=== PATIENT | male | born 1965 | race Caucasian/White ===

== ENCOUNTER 2020-05-04 16:01 | Emergency (ER) | payer MEDICAID, OTHER ==
--- NOTE | 2020-05-04 16:06 | ED GI ---
General Chief Complaint: Abdominal/GI Problems Source of Information: Patient Exam Limitations: No Limitations History of Present Illness Date Seen by Provider: May 04, 2020 Time Seen by Provider: 16:03 Initial Comments 54-year-old male brought in by EMS following a syncope event. Patient reports that he was sent on the stool having to strain significantly due to try to have a bowel movement. While he was straining he passed out. Patient reports that he's had a lot of pain in his rectum that he feels like his stool is stuck there causing the discomfort. That it has been at least 4 days and had a bowel moveme nt. He takes 6 different stool softeners. He tried enema with no relief. Allergies and Home Medications Allergies Coded Allergies: Penicillins (Verified Allergy, Unknown, 05/04/20) codeine (Verified Allergy, Unknown, 05/04/20) Patient Home Medication List Home Medication List Reviewed: Yes Review of Systems Review of Systems Constitutional: No chills, No fever EENTM: No Symptoms Reported Respiratory: No Symptoms Reported Cardiovascular: No Symptoms Reported Gastrointestinal: See HPI, Constipated Genitourinary: No Symptoms Reported Musculoskeletal: no symptoms reported Skin: no symptoms reported Psychiatric/Neurological: See HPI Past Nnrwyhx-Ipxokf-Dlsegw Hx Past Med/Social Hx: Reviewed Nursing Past Med/Soc Hx Physical Exam Vital Signs Vital Signs - First Documented 05/04/20 16:43 Temp 37.1 Pulse 85 Resp 16 B/P (MAP) 134/95 (108) Pulse Ox 95 Capillary Refill : Height/Weight/BMI Height: '" Weight: lbs. oz. kg; BMI Method: General Appearance: no apparent distress Respiratory: lungs clear, normal breath sounds Cardiovascular: no edema, tachycardia Gastrointestinal: non tender, soft Rectal: other (fecal impaction ) Neurologic/Psychiatric: alert, normal mood/affect, oriented x 3 Skin: normal color, warm/dry Progress/Results/Core Measures Results/Orders Lab Results Laboratory Tests Test 05/04/20 16:44 05/04/20 17:10 Range/Units Glucometer 125 H 70-110 MG/DL White Blood Count 14.9 H 4.3-11.0 10^3/uL Red Blood Count 4.92 4.35-5.85 10^6/uL Hemoglobin 14.7 13.3-17.7 G/DL Hematocrit 42 40-54 % Mean Corpuscular Volume 86 80-99 FL Mean Corpuscular Hemoglobin 30 25-34 PG Mean Corpuscular Hemoglobin Concent 35 32-36 G/DL Red Cell Distribution Width 12.6 10.0-14.5 % Platelet Count 433 H 130-400 10^3/uL Mean Platelet Volume 8.7 7.4-10.4 FL Neutrophils (%) (Auto) 80 H 42-75 % Lymphocytes (%) (Auto) 12 12-44 % Monocytes (%) (Auto) 6 0-12 % Eosinophils (%) (Auto) 1 0-10 % Basophils (%) (Auto) 1 0-10 % Neutrophils # (Auto) 12.0 H 1.8-7.8 X 10^3 Lymphocytes # (Auto) 1.8 1.0-4.0 X 10^3 Monocytes # (Auto) 0.9 0.0-1.0 X 10^3 Eosinophils # (Auto) 0.1 0.0-0.3 10^3/uL Basophils # (Auto) 0.1 0.0-0.1 10^3/uL Neutrophils % (Manual) 69 % Lymphocytes % (Manual) 11 % Monocytes % (Manual) 9 % Eosinophils % (Manual) 0 % Basophils % (Manual) 0 % Metamyelocytes % 1 % Band Neutrophils 8 % Atypical Lymphocytes 2 % Blood Morphology Comment NORMAL Sodium Level 138 135-145 MMOL/L Potassium Level 4.4 3.6-5.0 MMOL/L Chloride Level 100 98-107 MMOL/L Carbon Dioxide Level 26 21-32 MMOL/L Anion Gap 12 5-14 MMOL/L Blood Urea Nitrogen 14 7-18 MG/DL Creatinine 0.98 0.60-1.30 MG/DL Estimat Glomerular Filtration Rate > 60 BUN/Creatinine Ratio 14 Glucose Level 116 H 70-105 MG/DL Calcium Level 9.4 8.5-10.1 MG/DL Corrected Calcium 9.6 8.5-10.1 MG/DL Total Bilirubin 0.2 0.1-1.0 MG/DL Aspartate Amino Transf (AST/SGOT) 18 5-34 U/L Alanine Aminotransferase (ALT/SGPT) 16 0-55 U/L Alkaline Phosphatase 134 40-136 U/L Troponin I < 0.30 <0.30 NG/ML Total Protein 6.8 6.4-8.2 GM/DL Albumin 3.7 3.2-4.5 GM/DL My Orders Orders - LESA FRITZ DO Cbc With Automated Diff (05/04/20 16:06) Comprehensive Metabolic Panel (05/04/20 16:06) Accucheck Stat ONCE (05/04/20 16:06) Ekg Tracing (05/04/20 16:06) Monitor-Rhythm Ecg Trace Only (05/04/20 16:06) Troponin I Fs (05/04/20 16:06) Abdomen (Kub) 1 View (05/04/20 16:06) Ketorolac Injection (Toradol Injection) (05/04/20 16:10) Manual Differential (05/04/20 17:10) Medications Given in ED Current Medications Medications Dose Ordered Sig/Rai Route Start Time Stop Time Status Last Admin Dose Admin Ketorolac Tromethamine 30 mg STK-MED ONCE .ROUTE 05/04/20 16:10 05/04/20 16:14 DC 05/04/20 16:30 30 MG Vital Signs/I&O 05/04/20 16:43 Temp 37.1 Pulse 85 Resp 16 B/P (MAP) 134/95 (108) Pulse Ox 95 Progress Progress Note : Time: 16:37 Progress Note Patient had significant improvement in his symptoms following disimpaction by nurse. Patient with likely vasovagal syncope. 1744 patient continues to feel fine. No further episodes of syncope. He does have a slight elevation of his white count which he reports is chronic. He has a slight elevation in his heart rate but he is requesting he be discharged home. Discussed with him the need to add MiraLAX 3-4 times a day and drink plenty of water and fluids. Based on patient's request he will be discharged home in stable condition Initial ECG Impression Date: May 04, 2020 Initial ECG Impression Time: 16:53 Initial ECG Rate: 117 Initial ECG Rhythm: S.Tach Initial ECG Impression: Nonspecific Changes Diagnostic Imaging Diagonstic Imaging: Xray Plain Films/CT/US/NM/MRI: abdomen [facility] [place], [place] NAME: CRISTOFER VAZQUEZ [facility] REC#: [id number] PT STATUS: REG ER : 1965 PHYSICIAN: LESA FRITZ DO ADMIT DATE: 05/04/20/ER FS Draft Date of Exam:05/04/20 ABDOMEN (KUB) 1 VIEW REASON FOR EXAM: Constipation. Abdominal pain. COMPARISON: None. TECHNIQUE: Three views of the abdomen. FINDINGS: The bowel gas pattern is nondistended. No large collection of free intraperitoneal air is seen. A large amount of gas and fecal material are present in the colon. No abnormal extraosseous calcifications are present. The osseous structures are age-appropriate. IMPRESSION: 1. No evidence of bowel obstruction or large collection of free intraperitoneal air. 2. Large amount of stool throughout the colon, consistent with constipation. Departure Impression Primary Impression: Fecal impaction in rectum Additional Impression: Vasovagal syncope Disposition: 01 HOME, SELF-CARE Condition: Stable Departure-Patient Inst. Patient Instructions: Vasovagal Response, Constipation, Adult (DC) Add. Discharge Instructions: Drink plenty of fluids Ambulate frequently Increase fiber in your diet Follow-up with her primary care provider in the next couple days for further recheck and management of her chronic constipation All discharge instructions reviewed with patient and/or family. Voiced understanding. LESA FRITZ DO May 04, 2020 16:05
[2020-05-04] MEDS ORDERED: KETOROLAC 30 MG/ML VIAL ONE (16:10)
--- NOTE | 2020-05-04 17:03 | Diagnostic Imaging Report ---
REASON FOR EXAM: Constipation. Abdominal pain. COMPARISON: None. TECHNIQUE: Three views of the abdomen. FINDINGS: The bowel gas pattern is nondistended. No large collection of free intraperitoneal air is seen. A large amount of gas and fecal material are present in the colon. No abnormal extraosseous calcifications are present. The osseous structures are age-appropriate. IMPRESSION: 1. No evidence of bowel obstruction or large collection of free intraperitoneal air. 2. Large amount of stool throughout the colon, consistent with constipation. Dictated by: Dictated on workstation # [id number]
[2020-05-04 17:23] LABS: HEMATOCRIT 42 % (40-54); HEMOGLOBIN 14.7 G/DL (13.3-17.7); MEAN CORPUSCULAR HEMOGLOBIN 30 PG (25-34); MEAN CORPUSCULAR HGB CONC 35 G/DL (32-36); MEAN CORPUSCULAR VOLUME 86 FL (80-99); MEAN PLATELET VOLUME 8.7 FL (7.4-10.4); PLATELET COUNT 433 10^3/uL (130-400); WHITE BLOOD COUNT 14.9 10^3/uL (4.3-11.0)
[2020-05-04 17:24] LABS: BASOPHILS # (AUTO) 0.1 10^3/uL (0.0-0.1); BASOPHILS % (AUTO) 1 % (0-10); EOSINOPHILS # (AUTO) 0.1 10^3/uL (0.0-0.3); EOSINOPHILS % (AUTO) 1 % (0-10); LYMPHOCYTES # (AUTO) 1.8 X 10^3 (1.0-4.0); LYMPHOCYTES % (AUTO) 12 % (12-44); MONOCYTES # (AUTO) 0.9 X 10^3 (0.0-1.0); MONOCYTES % (AUTO) 6 % (0-12); NEUTROPHILS % (AUTO) 80 % (42-75)
[2020-05-04 17:35] LABS: ATYPICAL LYMPHOCYTES 2 %; BAND NEUTROPHILS 8 %; BASOPHILS % (MANUAL) 0 %; EOSINOPHILS % (MANUAL) 0 %; LYMPHOCYTES % (MANUAL) 11 %; METAMYELOCYTES % 1 %; MONOCYTES % (MANUAL) 9 %; NEUTROPHILS % (MANUAL) 69 %
[2020-05-04 17:36] LABS: RBC MORPH NORMAL
[2020-05-04 17:41] LABS: ALKALINE PHOSPHATASE 134 U/L (40-136); BILIRUBIN,TOTAL 0.2 MG/DL (0.1-1.0); BUN/CREATININE RATIO 14; CALCIUM 9.4 MG/DL (8.5-10.1); CARBON DIOXIDE 26 MMOL/L (21-32); CHLORIDE 100 MMOL/L (98-107); CREATININE SERUM 0.98 MG/DL (0.60-1.30); GFR ESTIMATED > 60; GLUCOSE 116 MG/DL (70-105); POTASSIUM 4.4 MMOL/L (3.6-5.0); SODIUM 138 MMOL/L (135-145)
[2020-05-04 17:42] LABS: ALANINE AMINOTRANSFERASE 16 U/L (0-55); ALBUMIN 3.7 GM/DL (3.2-4.5); TOTAL PROTEIN 6.8 GM/DL (6.4-8.2)
[2020-05-04 18:39] VITALS: BP 134/81
== END 2020-05-04 18:42 | disposition home or self-care (01) ==
LOC: ER FS 16:02
DX: K59.00 Constipation, unspecified (principal); R55 Syncope and collapse; Z88.0 Allergy status to penicillin; Z88.5 Allergy status to narcotic agent
CPT/HCPCS: 36415; 74018; 80053; 82962; 84484; 85007; 85027; 93005; 93041

== ENCOUNTER 2021-02-19 17:16 | Emergency (ER) | payer MEDICAID ==
[~2021-02-19] VITALS: Ht 172 cm; Wt 144.0 kg
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
[2021-02-19 18:01] LABS: BASOPHILS % (AUTO) 1 % (0-10); EOSINOPHILS % (AUTO) 1 % (0-10); HEMATOCRIT 49 % (40-54); HEMOGLOBIN 16.7 G/DL (13.3-17.7); LYMPHOCYTES % (AUTO) 16 % (12-44); MEAN CORPUSCULAR HEMOGLOBIN 30 PG (25-34); MEAN CORPUSCULAR HGB CONC 34 G/DL (32-36); MEAN CORPUSCULAR VOLUME 88 FL (80-99); MEAN PLATELET VOLUME 9.3 FL (7.4-10.4); MONOCYTES % (AUTO) 5 % (0-12); PLATELET COUNT 442 10^3/uL (130-400); WHITE BLOOD COUNT 16.1 10^3/uL (4.3-11.0)
[2021-02-19 18:02] LABS: BASOPHILS # (AUTO) 0.1 10^3/uL (0.0-0.1); EOSINOPHILS # (AUTO) 0.2 10^3/uL (0.0-0.3); LYMPHOCYTES # (AUTO) 2.6 X 10^3 (1.0-4.0); MONOCYTES # (AUTO) 0.8 X 10^3 (0.0-1.0); NEUTROPHILS # (AUTO) 12.3 X 10^3 (1.8-7.8); NEUTROPHILS % (AUTO) 76 % (42-75)
[2021-02-19 18:13] LABS: ACETAMINOPHEN < 10 UG/ML (10-30); ALANINE AMINOTRANSFERASE 24 U/L (0-55); ALBUMIN 4.4 GM/DL (3.2-4.5); ALKALINE PHOSPHATASE 158 U/L (40-136); BILIRUBIN,TOTAL 0.4 MG/DL (0.1-1.0); BUN/CREATININE RATIO 10; CARBON DIOXIDE 27 MMOL/L (21-32); CHLORIDE 100 MMOL/L (98-107); CREATININE SERUM 1.05 MG/DL (0.60-1.30); GFR ESTIMATED > 60; GLUCOSE 216 MG/DL (70-105); POTASSIUM 4.4 MMOL/L (3.6-5.0); SALICYLATE < 0.3 MG/DL (5.0-20.0); SODIUM 137 MMOL/L (135-145); TOTAL PROTEIN 7.9 GM/DL (6.4-8.2)
[2021-02-19 18:18] LABS: BAND NEUTROPHILS 3 %; EOSINOPHILS % (MANUAL) 1 %; LYMPHOCYTES % (MANUAL) 11 %; MONOCYTES % (MANUAL) 8 %; NEUTROPHILS % (MANUAL) 69 %
[2021-02-19 18:19] LABS: ATYPICAL LYMPHOCYTES 8 %; RBC MORPH NORMAL
[2021-02-19 18:22] LABS: AMPHETAMINE SCREEN, URINE NEGATIVE (NEGATIVE); BARBITURATE SCREEN URINE NEGATIVE (NEGATIVE); BENZODIAZEPINES SCREEN URINE POSITIVE (NEGATIVE); CANNABINOID SCREEN, URINE POSITIVE (NEGATIVE); COCAINE SCREEN URINE NEGATIVE (NEGATIVE); METHADONE STAT NEGATIVE (NEGATIVE); METHAMPHETAMINE SCREEN URINE S NEGATIVE (NEGATIVE); OPIATE SCREEN URINE NEGATIVE (NEGATIVE); OXYCODONE STAT NEGATIVE (NEGATIVE); PROPOXYPHENE STAT NEGATIVE (NEGATIVE); TRICYCLIC ANTIDEPRESSANTS SCRE POSITIVE (NEGATIVE)
[2021-02-19 18:23] LABS: CLARITY,URINE CLEAR; COLOR,URINE PALE YELLOW
[2021-02-19 18:25] LABS: BILIRUBIN,URINE NEGATIVE (NEGATIVE); GLUCOSE, URINE (UA) NEGATIVE (NEGATIVE); KETONES,URINE NEGATIVE (NEGATIVE); NITRITE,URINE NEGATIVE (NEGATIVE); PROTEIN,URINE NEGATIVE (NEGATIVE)
[2021-02-19 18:26] LABS: BACTERIA,URINE NEGATIVE /HPF; LEUKOCYTE ESTERASE ,URINE NEGATIVE (NEGATIVE); SQUAMOUS EPITHELIAL CELL,UR 0-2 /HPF; WBC,URINE 0-2 /HPF
[2021-02-19] MEDS ORDERED: IBUPROFEN 800 MG (MOTRIN) TAB PO ONE (22:15)
[2021-02-20] MEDS ORDERED: LORazepam 0.5 MG (ATIVAN) TABLET PO STA (00:39)
[2021-02-20 22:54] VITALS: BP 144/70
== END 2021-02-20 22:53 ==
LOC: EDUNIT# 17:16 → ER FS 17:18
DX: T14.91XA Suicide attempt, initial encounter (principal); I10 Essential (primary) hypertension; E11.9 Type 2 diabetes mellitus without complications; F17.290 Nicotine dependence, other tobacco product, uncomplicated; Z20.822 Contact with and (suspected) exposure to COVID-19; X78.9XXA Intentional self-harm by unspecified sharp object, initial encounter
CPT/HCPCS: 36415; 80053; 80306; 81000; 82947; 85007; 85027; 87636; 93005; 99284; G0480 ×3; 80320; 80329

== ENCOUNTER → 2022-03-31 | Outpatient (CLI) | payer MEDICAID | LOC: CARD 11:00 | PROVIDERS: ATTEND Internal Medicine Cardiovascular Disease | DX: I51.7 Cardiomegaly (principal) | CPT/HCPCS: 93225; 93226; 93306 ==

== ENCOUNTER → 2022-04-08 | Outpatient (CLI) | payer MEDICAID | LOC: LAB FS 08:40 | PROVIDERS: ATTEND Internal Medicine Cardiovascular Disease | DX: I10 Essential (primary) hypertension (principal); E78.2 Mixed hyperlipidemia; E11.42 Type 2 diabetes mellitus with diabetic polyneuropathy; F41.1 Generalized anxiety disorder; E66.01 Morbid (severe) obesity due to excess calories; R00.0 Tachycardia, unspecified; R94.31 Abnormal electrocardiogram [ECG] [EKG]; Z72.89 Other problems related to lifestyle | CPT/HCPCS: 36415; 84443 ==

== ENCOUNTER → 2022-04-09 | Outpatient (CLI) | payer MEDICAID ==
[~2022-04-09] VITALS: Ht 172 cm; Wt 138.0 kg
[~2022-04-09] MED LIST: REGADENOSON 0.4 MG/5 ML SYR (LEXISCAN) IV ONE
[2022-04-09] MEDS: CATHETER FLUSH 10 ML SYR IVP PRN (08:16)
[2022-04-09 09:35] VITALS: BP 153/91
[2022-04-09] MEDS: REGADENOSON 0.4 MG/5 ML SYR (LEXISCAN) IV ONE (09:38)
--- NOTE | 2022-04-10 13:14 | NUCLEAR STRESS TEST ---
REGADENOSON NUCLEAR STRESS Date of procedure: 04/09/2022. Primary care provider: Chin Bolivar DO Admitting physician: Mars Henriquez Jr., MD. INDICATION: Abnormal electrocardiogram. BASELINE ELECTROCARDIOGRAM: Sinus rhythm with right axis deviation, low voltage in the precordial leads, and nonspecific intraventricular conduction delay. STRESS TEST PROCEDURE: The patient was administered 0.4 mg of intravenous Regadenoson. The resting heart rate was 98 bpm and the peak heart rate was 108 bpm. The resting blood pressure was 153/91 mmHg and the minimum blood pressure was 146/92 mmHg. This represents a normal heart rate and a normal blood pressure response to Regadenoson with resting hypertension. The test was stopped due to the protocol. There was no chest discomfort during the test. There were no arrhythmias during the test. There were no significant stress induced electrocardiogram changes. NUCLEAR PROCEDURE: The patient was administered 10.4 mCi of intravenous techn etium 99m Tetrofosmin at rest for the rest images. The patient was subsequently administered 29.1 mCi of intravenous technetium 99m Tetrofosmin at peak stress for the stress images. Following an appropriate wait after each injection, imaging was obtained. The images were subsequently processed and reformatted in the usual views. Gated imaging was obtained. The image quality was adequate with a mild degree of gastrointestinal attenuation artifact. CT attenuation correction was used as a adjunct to standard imaging. Both the corrected and uncorrected images were reviewed for interpretation. NUCLEAR RESULTS: There was a moderate sized, moderate intensity, reversible distal anterior and apical defect with a moderate amount of inducible ischemia with a summed stress score of 9 and a summed difference score of 9. There was normal left ventricular chamber size with an end-diastolic volume of 44 mL and an end-systolic volume of 5 mL. There was no evidence of transient ischemic dilatation. The TID ratio was 1.04. There was normal wall motion in all segments with a calculated ejection fraction of 88%. IMPRESSION: 1. Normal heart rate and blood pressure response to regadenoson with resting hypertension. 2. There was no chest discomfort, arrhythmias, or electrocardiogram changes during the test. 3. There was a moderate sized, moderate intensity, reversible distal anterior and apical defect with a moderate amount of inducible ischemia with a summed stress score of 9 and a summed difference score of 9. 4. There was normal wall motion in all segments with a calculated ejection fraction of 88%. 5. This is an abnormal result representing a moderate risk for possible future coronary ischemic events. Certain portions of this document may have been dictated utilizing voice recognition technology. Inherent to this technology, typographical and grammatical errors may exist. As much as I am diligent to identify and correct these mistakes, some errors may remain in the document. MARS HENRIQUEZ JR, MD Apr 10, 2022 13:14
== END ==
LOC: CARD 08:30
PROVIDERS: ATTEND Internal Medicine Cardiovascular Disease
DX: R94.31 Abnormal electrocardiogram [ECG] [EKG] (principal)
CPT/HCPCS: 78452; 93017; A9502

== ENCOUNTER → 2022-04-20 | Outpatient (CLI) | payer MEDICAID ==
[2022-04-20 09:58] LABS: BASOPHILS # (AUTO) 0.1 10^3/uL (0.0-0.1); BASOPHILS % (AUTO) 1 % (0-10); EOSINOPHILS # (AUTO) 0.3 10^3/uL (0.0-0.3); EOSINOPHILS % (AUTO) 3 % (0-10); HEMATOCRIT 44 % (40-54); HEMOGLOBIN 15.1 g/dL (13.3-17.7); LYMPHOCYTES # (AUTO) 2.4 10^3/uL (1.0-4.0); LYMPHOCYTES % (AUTO) 22 % (12-44); MEAN CORPUSCULAR HEMOGLOBIN 30 pg (25-34); MEAN CORPUSCULAR HGB CONC 34 g/dL (32-36); MEAN CORPUSCULAR VOLUME 89 fL (80-99); MEAN PLATELET VOLUME 8.6 fL (9.0-12.2); MONOCYTES # (AUTO) 0.7 10^3/uL (0.0-1.0); MONOCYTES % (AUTO) 6 % (0-12); NEUTROPHILS # (AUTO) 7.1 10^3/uL (1.8-7.8); NEUTROPHILS % (AUTO) 67 % (42-75); PLATELET COUNT 362 10^3/uL (130-400); WHITE BLOOD COUNT 10.6 10^3/uL (4.3-11.0)
[2022-04-20 10:16] LABS: PROTHROMBIN TIME PATIENT 12.3 SEC (12.2-14.7)
[2022-04-20 10:17] LABS: INR 0.9 (0.8-1.4)
[2022-04-20 10:41] LABS: CALCIUM 8.7 MG/DL (8.5-10.1); CREATININE SERUM 1.07 MG/DL (0.60-1.30); POTASSIUM 4.2 MMOL/L (3.6-5.0)
== END ==
LOC: LAB FS 09:40
PROVIDERS: ATTEND Internal Medicine Cardiovascular Disease
DX: R94.39 Abnormal result of other cardiovascular function study (principal)
CPT/HCPCS: 36415; 80048; 85025; 85610

== ENCOUNTER 2022-04-23 08:13 | Day surgery (SDC) | payer MEDICAID ==
[2022-04-23] VITALS (10 sets, daily range): BP systolic 113–156; BP diastolic 72–95
[~2022-04-23] VITALS: Ht 172.7 cm; Wt 141.5 kg
[2022-04-23] MEDS ORDERED: NS IV 1000 ML 1,000 ML ONE (08:18)
[2022-04-23] MEDS ORDERED: HEParin (CATH LAB) 2,000 ML IV ONE (08:18)
[2022-04-23] MEDS ORDERED: LIDOCAINE 1% INJ 20 ML VIAL ONE (08:18)
[2022-04-23] MEDS ORDERED: ASPIRIN 81 MG CHEW (CHILDREN'S ASA) PO ONE (08:30)
[2022-04-23] MEDS ORDERED: NS IV 1000 ML 1,000 ML IV ONE (08:30)
[2022-04-23] MEDS ORDERED: CATHETER FLUSH 10 ML SYR IV PRN (08:30)
[2022-04-23] MEDS ORDERED: ASPIRIN 81 MG CHEW (CHILDREN'S ASA) ONE (08:38)
--- NOTE | 2022-04-23 08:55 | Consultation-Cardiology ---
HPI-Cardiology Cardiology Consultation: Date of Consultation 04/23/22 Date of Admission 04/23/22 Attending Physician Chin Bolivar DO Admitting Physician Admitting Physician: Attending Physician: Mars Henriquez Jr, MD Consulting Physician MARS HENRIQUEZ JR, MD HPI: Time Seen by a Provider: 08:54 Chief Complaint: THIS IS A HISTORY AND PHYSICAL EXAM FOR CARDIAC CATHETERIZATION I had the pleasure of seeing Tyron in the cardiac catheterization laboratory at [facility] in [place], [place] today. I just met him in February 2022 for an evaluation of sinus tachycardia and an abnormal electrocardiogram. I had him undergo noninvasive cardiac imaging. He underwent a nuclear stress test that s howed a moderate sized anterior and apical ischemic defect with a normal ejection fraction. Because of this, he is now referred for further evaluation with a cardiac catheterization. He denies any chest discomfort. He has chronic dyspnea on exertion and intermittent lower extremity edema. He denies paroxysmal nocturnal dyspnea, with apnea, palpitations, lightheadedness, or sync ope. Certain portions of this document may have been dictated utilizing voice recognition technology. Inherent to this technology, typographical and grammatical errors may exist. As much as I am diligent to identify and correct these mistakes, some errors may remain in the document. Review of Systems-Cardiology Review of Systems Other comments Review of 10 organ systems is as per the history of present illness, otherwise negative. JKQ-Hdwztv-Pqrjhh Hx Patient Social History Smoking Status: Current Everyday Smoker 2nd Hand Smoke Exposure: Yes Past Medical History PMH As described under Assessment. Allergies and Home Medications Allergies Coded Allergies: Penicillins (Verified Allergy, Unknown, 05/04/20) codeine (Verified Allergy, Unknown, 05/04/20) Patient Home Medication List Home Medication List Reviewed: Yes Exam Vital Signs Vital Signs Date Time Temp Pulse Resp B/P (MAP) Pulse Ox O2 Delivery O2 Flow Rate FiO2 04/23/22 08:29 36.8 109 156/93 (114) 98 Room Air Physical Exam General: Alert. No acute distress. Well nourished and appears stated age. He is obese. Eye: Extraocular movements are intact. Conjunctivae are clear. There are no xanthelasma. HENT: Normocephalic. Atraumatic. Carotid pulsations 2/2 without bruits. Neck: Jugular venous pressure does not appear elevated. No thyromegaly appreciated. Respiratory: Lungs are clear to auscultation. Respirations are non-labored. Breath sounds are equal. Symmetrical chest wall expansion. Cardiovascular: Normal rate. Regular rhythm. No murmur. No gallop. Point of maximal impulse is not appear displaced. Good pulses equal in all extremities. No edema. Gastrointestinal: Soft. Normal bowel sounds. Skin: Skin turgor is normal. There is no pallor. Musculoskeletal: No kyphosis or scoliosis appreciated. Neurologic: Alert and oriented to person, place, time. Cranial nerves 3-12 appear grossly intact. The patient has good motor tone strength in the upper and lower extremities bilaterally. Psychiatric: Cooperative. Appropriate mood & affect. Radiology REGADENOSON NUCLEAR STRESS TEST (04/09/2022): 1. Normal heart rate and blood pressure response to regadenoson with resting hypertension. 2. There was no chest discomfort, arrhythmias, or electrocardiogram changes during the test. 3. There was a moderate sized, moderate intensity, reversible distal anterior and apical defect with a moderate amount of inducible ischemia with a summed stress score of 9 and a summed difference score of 9. 4. There was normal wall motion in all segments with a calculated ejection fraction of 88%. 5. This is an abnormal result representing a moderate risk for possible future coronary ischemic events. 24-HOUR HOLTER MONITOR (03/31/2022): 1. This is a 24-hour Holter monitor report. 2. Baseline sinus rhythm with an average heart rate of 95 bpm, ranging from 59- 156 bpm with rare, isolated premature supraventricular complexes and 1 supraventricular couplet. There was no ventricular ectopy. 3. No patient diary was received. ECHOCARDIOGRAM (03/31/2022): 1. This is a technically difficult study due to poor image quality secondary to patient's body habitus. 2. Normal left ventricular chamber size with mild concentric hypertrophy. Normal left ventricular systolic function with an estimated ejection fraction of 60-65%. Regional wall motion abnormalities cannot be excluded due to poor endocardial definition. 3. Doppler parameters are consistent with grade 1 diastolic dysfunction. 4. The pulmonary artery pressure cannot be estimated on this study due to inadequate tricuspid regurgitant envelope. ELECTROCARDIOGRAM (03/13/2022): Sinus tachycardia at 127 bpm with rightward axis and low voltage in the precordial leads. Diagnosis/Problems Diagnosis/Problems (1) Abnormal nuclear stress test Assessment & Plan: He has a moderate sized anterior and apical ischemic defect consistent with moderate risk of future cardiac events. In light of this abnormality, I have recommended further evaluation with a cardiac catheterization. I have explained the benefits and risks of the procedure to the patient and he is in agreement to proceed. (2) Primary hypertension Assessment & Plan: We will continue his outpatient antihypertensive medication. (3) Mixed hyperlipidemia Assessment & Plan: Continue atorvastatin. (4) Type 2 diabetes mellitus with complication Assessment & Plan: Continue insulin. (5) Morbid obesity Assessment & Plan: He needs to work on weight loss. (6) Electronic cigarette use Assessment & Plan: He needs to quit all tobacco products. MARS HENRIQUEZ JR, MD Apr 23, 2022 08:55
--- NOTE | 2022-04-23 09:04 | Pre-Op Note & Conscious Sedat ---
Pre-Operative Progress Note Date H&P Reviewed: Apr 23, 2022 Time H&P Reviewed: 09:03 History & Physical: H&P Reviewed, Patient Examed, No changes noted Pre-Op Diagnosis: Abnormal nuclear stress test. Conscious Sedation Pre-Proced ASA Score 3 For ASA 3 and 4: Consider anesthesia and medical clearance. Also, for patients with a history of failed moderate sedation consider anesthesia. Airway Lungs Heart ASA score ASA 1: a normal healthy patient ASA 2: a patient with a mild systemic disease (mid diabetes, controlled hypertension, obesity ASA 3: a patient with a severe systemic disease that limits activity (angina, COPD, prior Myocardial infarction) ASA 4: a patient with an incapacitating disease that is a constant threat to life (CHF, renal failure) ASA 5: a moribund patient not expected to survive 24 hrs. (ruptured aneurysm) ASA 6: a declared brain- patient whose organs are being harvested. For emergent operations, add the letter E after the classification Mallampati Classification Grade 3 Sedation Plan Analgesia, Amnesia, Plan communicated to team members, Discussed options with patient/fam, Discussed risks with patient/fam The patient is an appropriate candidate to undergo the planned procedure, sedation, and anesthesia. The patient immediately re-assessed prior to indication. Given his current clinical status, he is considered vulnerable. He does not [place] any history of heart failure. BUBBA SERNA JR, MD Apr 23, 2022 09:04
[2022-04-23] MEDS ORDERED: INSU100I29 SQ (09:09)
[2022-04-23] MEDS ORDERED: GLIM4TAB5 PO (09:09)
[2022-04-23] MEDS ORDERED: MONT-40 PO (09:09)
[2022-04-23] MEDS ORDERED: DULO60CA59 PO (09:09)
[2022-04-23] MEDS ORDERED: ALPR0.5T7 PO (09:09)
[2022-04-23] MEDS ORDERED: TMSL.4C PO (09:09)
[2022-04-23] MEDS ORDERED: TOPI50TA13 PO (09:09)
[2022-04-23] MEDS ORDERED: LISI5TAB20 PO (09:09)
[2022-04-23] MEDS ORDERED: ATOR10TA66 PO (09:09)
[2022-04-23] MEDS ORDERED: SENN1TAB93 PO (09:09)
[2022-04-23] MEDS ORDERED: MTP25TSR PO (09:09)
[2022-04-23] MEDS ORDERED: BREX3TAB PO (09:09)
[2022-04-23] MEDS ORDERED: [UNRECOGNIZED DRUG - OTHER] PO (09:09)
[2022-04-23] MEDS ORDERED: LORA10TA7 PO (09:09)
[2022-04-23] MEDS ORDERED: INSU100I23 SQ (09:09)
[2022-04-23] MEDS ORDERED: TRZ50T PO (09:09)
[2022-04-23] MEDS ORDERED: AMIT100T2 PO (09:09)
[2022-04-23] MEDS ORDERED: GABA300C PO (09:09)
[2022-04-23] MEDS ORDERED: HERB1CAP2 PO (09:09)
[2022-04-23] MEDS ORDERED: BUSP10TA95 PO (09:09)
[2022-04-23] MEDS ORDERED: VERAPAMIL 5 MG/2 ML (CALAN) VIAL IV ONE (09:14)
[2022-04-23] MEDS ORDERED: fentaNYL INJ 100 MCG/2 ML AMP ONE (09:15)
[2022-04-23] MEDS ORDERED: HEParin 1000 UNIT/ML (10ML VIAL) FOR BOLUS ONE (09:15)
[2022-04-23] MEDS ORDERED: MIDAZOLAM 5 MG/5 ML (VERSED) VIAL ONE (09:15)
[2022-04-23] MEDS ORDERED: NITRO DRIP 25000 MCG/D5W 250 ML IV ONE (09:15)
--- NOTE | 2022-04-23 09:54 | Cardiac Cath Report ---
CARDIAC CATHETERIZATION DATE OF PROCEDURE: 04/23/2022 INDICATION: Abnormal nuclear stress test. HISTORY: The patient is a 56 year old male who I met in the office in February 2022 for an evaluation of an abnormal electrocardiogram and tachycardia. As part of his evaluation I had him undergo a nuclear stress test and this showed a moderate sized anterior and apical ischemic defect. In light of this abnormality, he is now referred for further evaluation with a cardiac catheterization. Given his overall clinical status, he is considered vulnerable. He has no history of heart failure. PROCEDURES PERFORMED: 1. Left heart catheterization with hemodynamic measurements. 2. Diagnostic [place] coronary angiography. PROCEDURE DESCRIPTION: After informed consent and in the fasting state, left heart catheterization was performed through the right radial artery utilizing a 6 Scottish system by percutaneous approach. Standard Ros[place] 5 Scottish catheters were utilized for the diagnostic portion of the procedure. All catheters were exchanged over a guidewire. Following the procedure, a vascular band was applied to the radial artery access site and the sheath was removed with good hemostasis. RESULTS: HEMODYNAMICS: The aortic pressure was 114/62 mmHg. The aortic pressure was 133/0 mmHg with a left ventricular end-diastolic pressure of 16 mmHg. There was no significant pressure gradient upon pullback across the aortic valve. CORONARY ANGIOGRAPHY: Left main coronary artery: Short and free of significant disease. Left anterior descending coronary artery: There was a 40% stenosis in the midsegment. Left circumflex coronary artery: Codominant and free of significant disease. Right coronary artery: Codominant and free of significant disease. IMPRESSION: 1. Normal central aortic pressure with elevated left ventricular end-diastolic pressure. 2. Mild single-vessel coronary artery disease involving the mid left anterior descending coronary artery as outlined above. 3. The patient is known to have normal left ventricular systolic function with an estimated ejection fraction of 60-65% by echocardiogram that was performed in 03/31/2022. Certain portions of this document may have been dictated utilizing voice recognition technology. Inherent to this technology, typographical and grammatical errors may exist. As much as I am diligent to identify and correct these mistakes, some errors may remain in the document. BUBBA SERNA JR, MD Apr 23, 2022 09:54
[2022-04-23] MEDS: NS IV 1000 ML 300 ML IV SCH ×2 (13:09→13:30)
== END 2022-04-23 15:20 | disposition home or self-care (01) ==
LOC: CATH 08:13 → CSD 11:30 → CATH 15:20
PROVIDERS: ATTEND Internal Medicine Cardiovascular Disease
DX: I25.10 Atherosclerotic heart disease of native coronary artery without angina pectoris (principal); R94.39 Abnormal result of other cardiovascular function study; I10 Essential (primary) hypertension; E78.2 Mixed hyperlipidemia; E66.01 Morbid (severe) obesity due to excess calories; F17.290 Nicotine dependence, other tobacco product, uncomplicated; E11.8 Type 2 diabetes mellitus with unspecified complications; Z79.4 Long term (current) use of insulin; Z79.899 Other long term (current) drug therapy
CPT/HCPCS: 87081; 93458; C1894

== ENCOUNTER → 2022-08-26 | Outpatient (CLI) | payer MEDICAID ==
[~2022-08-26] MED LIST changes: +ALPR0.5T7 PO; +AMIT100T2 PO; +ATOR10TA66 PO; +BREX3TAB PO; +BUSP10TA95 PO; +DULO60CA59 PO; +GABA300C PO; +GLIM4TAB5 PO; +HERB1CAP2 PO; +INSU100I23 SQ; +INSU100I29 SQ; +LISI5TAB20 PO; +LORA10TA7 PO; +MONT-40 PO; +MTP25TSR PO; -REGADENOSON 0.4 MG/5 ML SYR (LEXISCAN) IV ONE; +SENN1TAB93 PO; +TMSL.4C PO; +TOPI50TA13 PO; +TRZ50T PO; +[UNRECOGNIZED DRUG - OTHER] PO
[2022-08-26 10:28] LABS: BILIRUBIN,URINE NEGATIVE (NEGATIVE); CLARITY,URINE CLEAR; COLOR,URINE YELLOW; GLUCOSE, URINE (UA) 3+ (NEGATIVE); KETONES,URINE NEGATIVE (NEGATIVE); LEUKOCYTE ESTERASE ,URINE NEGATIVE (NEGATIVE); NITRITE,URINE NEGATIVE (NEGATIVE); PROTEIN,URINE NEGATIVE (NEGATIVE)
[2022-08-26 10:34] LABS: BACTERIA,URINE NEGATIVE /HPF; RBC,URINE RARE /HPF; SQUAMOUS EPITHELIAL CELL,UR RARE /HPF; WBC,URINE RARE /HPF
== END ==
LOC: LAB FS 10:09
PROVIDERS: ATTEND Emergency Medicine
DX: E11.9 Type 2 diabetes mellitus without complications (principal); E78.5 Hyperlipidemia, unspecified
CPT/HCPCS: 81000

== ENCOUNTER → 2022-08-26 | Outpatient (CLI) | payer MEDICAID ==
[2022-08-26 10:27] LABS: BASOPHILS # (AUTO) 0.1 10^3/uL (0.0-0.1); BASOPHILS % (AUTO) 1 % (0-10); EOSINOPHILS # (AUTO) 0.2 10^3/uL (0.0-0.3); EOSINOPHILS % (AUTO) 3 % (0-10); HEMATOCRIT 44 % (40-54); HEMOGLOBIN 15.2 g/dL (13.3-17.7); LYMPHOCYTES # (AUTO) 2.2 10^3/uL (1.0-4.0); LYMPHOCYTES % (AUTO) 25 % (12-44); MEAN CORPUSCULAR HEMOGLOBIN 30 pg (25-34); MEAN CORPUSCULAR HGB CONC 35 g/dL (32-36); MEAN CORPUSCULAR VOLUME 87 fL (80-99); MEAN PLATELET VOLUME 8.9 fL (9.0-12.2); MONOCYTES # (AUTO) 0.4 10^3/uL (0.0-1.0); MONOCYTES % (AUTO) 5 % (0-12); NEUTROPHILS # (AUTO) 5.8 10^3/uL (1.8-7.8); NEUTROPHILS % (AUTO) 66 % (42-75); PLATELET COUNT 338 10^3/uL (130-400); WHITE BLOOD COUNT 8.8 10^3/uL (4.3-11.0)
[2022-08-26 10:54] LABS: BILIRUBIN,TOTAL 0.3 MG/DL (0.1-1.0); CALCIUM 8.9 MG/DL (8.5-10.1); CREATININE SERUM 1.08 MG/DL (0.60-1.30); POTASSIUM 4.4 MMOL/L (3.6-5.0); TOTAL PROTEIN 6.8 GM/DL (6.4-8.2)
[2022-08-26 10:55] LABS: ALBUMIN 3.8 GM/DL (3.2-4.5)
== END ==
LOC: LAB FS 09:54
PROVIDERS: ATTEND Nurse Practitioner Psychiatric/Mental Health
DX: F33.2 Major depressive disorder, recurrent severe without psychotic features (principal); F60.3 Borderline personality disorder; Z79.899 Other long term (current) drug therapy
CPT/HCPCS: 36415; 80053; 80061; 83036; 84443; 85025

== ENCOUNTER 2022-09-21 22:25 | Emergency (ER) | payer MEDICAID ==
[~2022-09-21] VITALS: Ht 172.7 cm; Wt 136.4 kg
--- NOTE | 2022-09-21 22:32 | ED GI ---
General Chief Complaint: Abdominal/GI Problems Stated Complaint: CONSTIPATION History of Present Illness Date Seen by Provider: Sep 21, 2022 Time Seen by Provider: 22:32 Initial Comments 56-year-old male with PMH of CAD with cath done 3 months ago/DM2/ anxiety/HTN/constipation, is here with complaints of 4 days of constipation. Patient has associated abdominal pain and distention, and nausea. Patient states that he feels like defecating but feels like it is a hard rock in his rectum. Patient tried to manually disimpact himself but did not get much out due to it being very hard. Denies fever, vomiting, shortness of breath, dys uria. Allergies and Home Medications Allergies Coded Allergies: Penicillins (Verified Allergy, Unknown, 05/04/20) codeine (Verified Allergy, Unknown, 05/04/20) Patient Home Medication List Home Medication List Reviewed: Yes Alprazolam (Alprazolam) 0.5 Mg Tablet, 0.5 MG PO TID PRN for ANXIETY, (Reported) Entered as Reported by: TWAN BRITTON on 04/23/22908 Last Action: Last Taken Edited Amitriptyline HCl (Amitriptyline HCl) 100 Mg Tablet, 100 MG PO HS, (Reported) Entered as Reported by: TWAN BRITTON on 04/23/22908 Last Action: Reviewed Atorvastatin Calcium (Atorvastatin Calcium) 10 Mg Tablet, 10 MG PO HS, (Reported) Entered as Reported by: TWAN BRITTON on 04/23/22908 Last Action: Reviewed Brexpiprazole (Rexulti) 3 Mg Tablet, 3 MG PO DAILY, (Reported) Entered as Reported by: TWAN BRITTON on 04/23/22908 Last Action: Reviewed Buspirone HCl (Buspirone HCl) 10 Mg Tablet, 10 MG PO TID, (Reported) Entered as Reported by: TWAN BRITTON on 04/23/22908 Last Action: Reviewed Duloxetine HCl (Duloxetine HCl) 60 Mg Capsule.dr, 120 MG PO DAILY, (Reported) Entered as Reported by: TWAN BRITTON on 04/23/22908 Last Action: Reviewed Gabapentin (Neurontin) 300 Mg Capsule, 300 MG PO HS, (Reported) Entered as Reported by: TWAN BRITTON on 04/23/22908 Last Action: Reviewed Glimepiride (Glimepiride) 4 Mg Tablet, 4 MG PO DAILY, (Reported) Entered as Reported by: TWAN BRITTON on 04/23/22908 Last Action: Reviewed Herbal Drugs (Colon Herbal Cleanser) 1 Each Capsule, 1 EACH PO HS, (Reported) Entered as Reported by: TWAN BRITTON on 04/23/22908 Last Action: Last Taken Edited Insulin Detemir (Levemir Flextouch) 100 Unit/Ml (3 Ml) Insuln.pen, 60 UNIT SQ BID, (Reported) Entered as Reported by: TWAN BRITTON on 04/23/22908 Last Action: Last Taken Edited Insulin Lispro (Humalog Kwikpen) 100 Unit/Ml Insuln.pen, 55 UNIT SQ TID PRN for BLOOD SUGAR, (Reported) Entered as Reported by: TWAN BRITTON on 04/23/22908 Last Action: Last Taken Edited Lisinopril (Lisinopril) 5 Mg Tablet, 5 MG PO DAILY, (Reported) Entered as Reported by: TWAN BRITTON on 04/23/22908 Last Action: Reviewed Loratadine (Loratadine) 10 Mg Tablet, 10 MG PO DAILY, (Reported) Entered as Reported by: TWAN BRITTON on 04/23/22908 Last Action: Last Taken Edited Metoprolol Succinate (Metoprolol Succinate) 25 Mg Tab.er.24h, 25 MG PO DAILY, (Reported) Entered as Reported by: TWAN BRITTON on 04/23/22908 Last Action: Reviewed Montelukast Sodium (Montelukast Sodium) 10 Mg Tablet, 10 MG PO DAILY, (Reported) Entered as Reported by: TWAN BRITTON on 04/23/22908 Last Action: Last Taken Edited Sennosides/Docusate Sodium (Senna-Docusate Sodium Tablet) 8.6 Mg-50 Mg Tablet, 2 TAB PO BID, (Reported) Entered as Reported by: TWAN BRITTON on 04/23/22908 Last Action: Reviewed Tamsulosin HCl (Flomax) 0.4 Mg Cap, 0.4 MG PO HS, (Reported) Entered as Reported by: TWAN BRITTON on 04/23/22908 Last Action: Reviewed Topiramate (Topiramate) 50 Mg Tablet, 50 MG PO HS, (Reported) Entered as Reported by: TWAN BRITTON on 04/23/22908 Last Action: Reviewed Trazodone HCl (Trazodone HCl) 50 Mg Tablet, 50 MG PO HS, (Reported) Entered as Reported by: TWAN BRITTON on 04/23/22908 Last Action: Reviewed Zolpidem Tartrate (Ambien) 10 Mg Tablet, 10 MG PO HS, (Reported) Entered as Reported by: YUSUF LAGUNAS on 09/22/228 Last Action: New Order [Digestion Detox Supp] , 1 TAB PO DAILY, (Reported) Entered as Reported by: TWAN BRITTON on 04/23/22908 Last Action: Last Taken Edited Review of Systems Review of Systems Constitutional: no symptoms reported EENTM: No Symptoms Reported Respiratory: No Symptoms Reported Cardiovascular: No Symptoms Reported Gastrointestinal: Abdomen Distended, Constipated, Nausea Genitourinary: No Symptoms Reported Musculoskeletal: no symptoms reported Skin: no symptoms reported Psychiatric/Neurological: No Symptoms Reported Endocrine: No Symptoms Reported Hematologic/Lymphatic: No Symptoms Reported Past Wayytwo-Aideoz-Earcqk Hx Seasonal Allergies Seasonal Allergies: No Past Medical History Surgeries: No Eye Surgery, Gallbladder Respiratory: No Cardiac: Yes Hypertension Neurological: No Genitourinary: No Gastrointestinal: Yes Chronic Constipation Musculoskeletal: No Endocrine: Yes Diabetes, Non-Insulin dep HEENT: No Cancer: No Psychosocial: Yes Anxiety, Depression Integumentary: No Physical Exam Vital Signs Vital Signs - First Documented 09/21/22 22:25 Temp 37.2 Pulse 124 Resp 15 B/P (MAP) 143/74 (97) O2 Delivery Room Air Capillary Refill : Height/Weight/BMI Height: '" Weight: lbs. oz. kg; 47.44 BMI Method: General Appearance: WD/WN, mild distress HEENT: PERRL/EOMI Respiratory: chest non-tender, lungs clear Cardiovascular: regular rate, rhythm Gastrointestinal: distended, tenderness, other (distant bowel sounds) Rectal: other (impacted stool) Neurologic/Psychiatric: alert, normal mood/affect, oriented x 3 Skin: normal color Focused Exam Lactate Level 09/21/22 22:50: Lactic Acid Level 3.11*H Lactic Acid Level Laboratory Tests Test 09/21/22 22:50 Lactic Acid Level 3.11 MMOL/L (0.50-2.00) *H Progress/Results/Core Measures Results/Orders Lab Results Laboratory Tests Test 09/21/22 22:35 09/21/22 22:50 09/21/22 23:45 Range/Units White Blood Count 11.3 H 4.3-11.0 10^3/uL Red Blood Count 5.22 4.30-5.52 10^6/uL Hemoglobin 15.6 13.3-17.7 g/dL Hematocrit 45 40-54 % Mean Corpuscular Volume 85 80-99 fL Mean Corpuscular Hemoglobin 30 25-34 pg Mean Corpuscular Hemoglobin Concent 35 32-36 g/dL Red Cell Distribution Width 12.2 10.0-14.5 % Platelet Count 376 130-400 10^3/uL Mean Platelet Volume 9.0 9.0-12.2 fL Immature Granulocyte % (Auto) 1 % Neutrophils (%) (Auto) 66 42-75 % Lymphocytes (%) (Auto) 25 12-44 % Monocytes (%) (Auto) 5 0-12 % Eosinophils (%) (Auto) 3 0-10 % Basophils (%) (Auto) 1 0-10 % Neutrophils # (Auto) 7.5 1.8-7.8 10^3/uL Lymphocytes # (Auto) 2.8 1.0-4.0 10^3/uL Monocytes # (Auto) 0.5 0.0-1.0 10^3/uL Eosinophils # (Auto) 0.3 0.0-0.3 10^3/uL Basophils # (Auto) 0.1 0.0-0.1 10^3/uL Immature Granulocyte # (Auto) 0.1 0.0-0.1 10^3/uL Sodium Level 133 L 135-145 MMOL/L Potassium Level 4.4 3.6-5.0 MMOL/L Chloride Level 97 L 98-107 MMOL/L Carbon Dioxide Level 23 21-32 MMOL/L Anion Gap 13 5-14 MMOL/L Blood Urea Nitrogen 10 7-18 MG/DL Creatinine 0.97 0.60-1.30 MG/DL Estimat Glomerular Filtration Rate 91 BUN/Creatinine Ratio 10 Glucose Level 423 *H 70-105 MG/DL Calcium Level 9.0 8.5-10.1 MG/DL Corrected Calcium 8.8 8.5-10.1 MG/DL Magnesium Level 1.8 1.6-2.4 MG/DL Total Bilirubin 0.4 0.1-1.0 MG/DL Aspartate Amino Transf (AST/SGOT) 17 5-34 U/L Alanine Aminotransferase (ALT/SGPT) 18 0-55 U/L Alkaline Phosphatase 165 H 40-136 U/L Total Protein 7.2 6.4-8.2 GM/DL Albumin 4.2 3.2-4.5 GM/DL Lipase 24 8-78 U/L Lactic Acid Level 3.11 *H 0.50-2.00 MMOL/L Urine Color YELLOW Urine Clarity CLEAR Urine pH 6.0 5-9 Urine Specific [place] 1.020 1.016-1.022 Urine Protein NEGATIVE NEGATIVE Urine Glucose (UA) 3+ H NEGATIVE Urine Ketones NEGATIVE NEGATIVE Urine Nitrite NEGATIVE NEGATIVE Urine Bilirubin NEGATIVE NEGATIVE Urine Urobilinogen 0.2 < = 1.0 MG/DL Urine Leukocyte Esterase NEGATIVE NEGATIVE Urine RBC (Auto) NEGATIVE NEGATIVE Urine RBC NONE /HPF Urine WBC 0-2 /HPF Urine Crystals NONE /LPF Urine Bacteria NEGATIVE /HPF Urine Casts NONE /LPF Urine Mucus LARGE H /LPF Urine Culture Indicated NO My Orders Orders - ALPA RIVAS MD Ct Abdomen/Pelvis Wo (09/21/22 22:37) Cbc With Automated Diff (09/21/22 22:37) Comprehensive Metabolic Panel (09/21/22 22:37) Lactic Acid Analyzer (09/21/22 22:37) Lipase (09/21/22 22:37) Magnesium (09/21/22 22:37) Ua Culture If Indicated (09/21/22 22:37) Na Phos/Na Biphos Enema (Fleet Enema Anuj (09/21/22 23:00) Na Phos/Na Biphos Enema (Fleet Enema Anuj (09/21/22 22:56) Bisacodyl Suppository (Dulcolax Supposit (09/21/22 23:15) Insulin (Regular) Human (Novolin R (Per (09/21/22 23:10) Ed Iv/Invasive Line Start (09/21/22 23:11) Ns Iv 1000 Ml (Sodium Chloride 0.9%) (09/21/22 23:15) Medications Given in ED Current Medications Medications Dose Ordered Sig/Rai Route Start Time Stop Time Status Last Admin Dose Admin Bisacodyl 10 mg ONCE ONCE NC 09/21/22 23:15 09/21/22 23:16 DC 09/21/22 23:27 10 MG Sodium Biphosphate/ Sodium Phosphate 1 ea ONCE ONCE NC 09/21/22 23:00 09/21/22 23:02 DC 09/21/22 22:59 1 EA Vital Signs/I&O 09/21/22 22:25 Temp 37.2 Pulse 124 Resp 15 B/P (MAP) 143/74 (97) O2 Delivery Room Air Progress Progress Note : Progress Note 1. CONSTIPATION: - CT ABDOMEN: - Labs unremarkable except for glucose - Fleet enema STAT - Pt was able to defecate a large softball size stool - Dulcolax suppository STAT - Pt was able to pass the stool on his own, and defecated a softball size of stool, and felt much better right after -Advised adequate water intake at home, with high-fiber diet -Follow-up with PCP in the next 3 days -The patient was seen in the ED, and treated appropriately to presentation at a specific point in time. Patient is informed that there is a possibility that disease and illness can evolve and change in acuity rapidly or slowly after patient is discharged from the ER. Precautionary advice given to the patient for immediate return to ER if symptoms worsen or do not resolve, and to seek emergency care sooner rather than later. Pt also advised on the importance of PCP follow up and compliance with management and follow up plan with PCP and/or specialist, as this is part of the management plan. Pt verbally expressed understanding. -No obvious obstruction on CT, or any other acute findings suggestive of abdom inal pathology. 2. HYPERGLYCEMIA: - serum glucose is 423 - CMP otherwise unremarkable - Pt did not take his evening insukin before coming to the ER - Regular insulin 5units STAT, blood sugar improved to 347. Pt also did not take his evening insulin at home prior to coming to the ER - NS IVF bolus STAT - Repeat fingerstick is: Diagnostic Imaging Diagonstic Imaging: CT Plain Films/CT/US/NM/MRI: abdomen Comments CT abdomen and pelvis without intravenous contrast: 1. Moderate stool in the rectum and sigmoid. Diverticulosis. No diverticulitis. 2. There is bilateral perinephric stranding perhaps slightly more prominent on the right. Correlate with any indication of pyelonephritis 3. Cholecystectomy. Markedly inhomogeneous fatty liver. 4. Lumbar spondylosis with significant spinal stenosis in L4-L5 Departure Impression Primary Impression: Constipation Additional Impression: Hyperglycemia due to diabetes mellitus Disposition: 01 HOME, SELF-CARE Condition: Stable Departure-Patient Inst. Referrals: MARY JANE ZELAYA DO (PCP/Family) Primary Care Physician Patient Instructions: How to Keep Track of Your Blood Sugar, Diabetes in Older Adults, Dealing with Constipation from the Drugs You Take, Constipation, Adult ED, How to Prevent High Blood Sugar Emergencies in Diabetes, High Blood Sugar, Adult ED Add. Discharge Instructions: -Advised adequate water intake at home, with high-fiber diet -Follow-up with PCP in the next 3 days -Patient is informed that there is a possibility that disease and illness can evolve and change in acuity rapidly or slowly after patient is discharged from the ER. Precautionary advice given to the patient for immediate return to ER if symptoms worsen or do not resolve, and to seek emergency care sooner rather than later. Pt also advised on the importance of PCP follow up and compliance with management and follow up plan with PCP and/or specialist, as this is part of the management plan. All discharge instructions reviewed with patient and/or family. Voiced understanding. ALPA RIVAS MD Sep 21, 2022 22:32
[2022-09-21 22:48] LABS: BASOPHILS # (AUTO) 0.1 10^3/uL (0.0-0.1); BASOPHILS % (AUTO) 1 % (0-10); EOSINOPHILS # (AUTO) 0.3 10^3/uL (0.0-0.3); EOSINOPHILS % (AUTO) 3 % (0-10); HEMATOCRIT 45 % (40-54); HEMOGLOBIN 15.6 g/dL (13.3-17.7); LYMPHOCYTES # (AUTO) 2.8 10^3/uL (1.0-4.0); LYMPHOCYTES % (AUTO) 25 % (12-44); MEAN CORPUSCULAR HEMOGLOBIN 30 pg (25-34); MEAN CORPUSCULAR HGB CONC 35 g/dL (32-36); MEAN CORPUSCULAR VOLUME 85 fL (80-99); MONOCYTES # (AUTO) 0.5 10^3/uL (0.0-1.0); MONOCYTES % (AUTO) 5 % (0-12); NEUTROPHILS # (AUTO) 7.5 10^3/uL (1.8-7.8); NEUTROPHILS % (AUTO) 66 % (42-75); PLATELET COUNT 376 10^3/uL (130-400); WHITE BLOOD COUNT 11.3 10^3/uL (4.3-11.0)
[2022-09-21] MEDS ORDERED: FLEET ENEMA ADULT 1 EA BTL ONE (22:56)
[2022-09-21] MEDS ORDERED: FLEET ENEMA ADULT 1 EA BTL PR ONE (23:00)
[2022-09-21 23:06] LABS: BILIRUBIN,TOTAL 0.4 MG/DL (0.1-1.0); CREATININE SERUM 0.97 MG/DL (0.60-1.30); MAGNESIUM 1.8 MG/DL (1.6-2.4); POTASSIUM 4.4 MMOL/L (3.6-5.0)
[2022-09-21 23:07] LABS: ALBUMIN 4.2 GM/DL (3.2-4.5); TOTAL PROTEIN 7.2 GM/DL (6.4-8.2)
[2022-09-21] MEDS ORDERED: inSUlin (REGULAR) HUMAN 1 UNIT/0.01 ML (CHARGE PER UNIT) SC STA (23:10)
[2022-09-21] MEDS ORDERED: BISACODYL 10 MG SUPP (DULCOLAX) PR ONE (23:15)
[2022-09-21] MEDS ORDERED: NS IV 1000 ML 1,000 ML IV SCH (23:15)
[2022-09-21 23:52] LABS: BILIRUBIN,URINE NEGATIVE (NEGATIVE); CLARITY,URINE CLEAR; COLOR,URINE YELLOW; GLUCOSE, URINE (UA) 3+ (NEGATIVE); KETONES,URINE NEGATIVE (NEGATIVE); LEUKOCYTE ESTERASE ,URINE NEGATIVE (NEGATIVE); NITRITE,URINE NEGATIVE (NEGATIVE); PROTEIN,URINE NEGATIVE (NEGATIVE)
[2022-09-22] MEDS ORDERED: ZOLP10TA PO (00:09)
[2022-09-22 00:19] LABS: BACTERIA,URINE NEGATIVE /HPF; WBC,URINE 0-2 /HPF
[2022-09-22 00:40] VITALS: BP 129/88
--- NOTE | 2022-09-22 06:03 | Diagnostic Imaging Report ---
PROCEDURE: CT abdomen and pelvis without contrast. TECHNIQUE: Multiple contiguous axial images were obtained through the abdomen and pelvis without the use of intravenous contrast. Auto Exposure Controls were utilized during the CT exam to meet ALARA standards for radiation dose reduction. INDICATION: 56-year-old male with constipation. COMPARISONS: None FINDINGS: Lung bases are clear. Cardiac contour is normal. There is a sliver of pericardial fluid possibly physiologic. Liver shows some mild steatosis. There is no intraparenchymal mass or ductal dilatation. Gallbladder surgically absent. Spleen and GE junction are normal. Stomach and duodenal sweep are unremarkable. Pancreas shows some fatty replacement of the head and uncinate process. There are, however sharp margins. Adrenals are normal. Kidneys appear normal in size, position and contour. There is some minimal nonspecific bilateral perinephric stranding. There is no hydronephrosis or hydroureter. Both ureters are seen intermittently through their course and appear unremarkable. Partially filled bladder is also normal. Nonopacified loops of small bowel are normal. Appendix is normal. Large bowel contains fecal material and gas. There is scattered diverticula in the left colon with sigmoid diverticulosis but no evidence of acute diverticulitis. There is moderate amount of fecal load in the distal sigmoid colon and rectum. There is no free air, free fluid or adenopathy. The aorta iliac and femoral arteries are grossly unremarkable. Bone windows show no overall gross abnormalities. IMPRESSION: 1. Inhomogeneous Grade 2 hepatic steatosis. There are areas of low-attenuation that are scattered. Perhaps a three-phase liver scan would be of further value. 2. Surgically absent gallbladder. 3. Some minimal bilateral perinephric stranding, left greater than right. This may be physiologic, however an element of pyelonephritis is within the differential in the appropriate clinical setting. There is no evidence of appendicitis. There are scattered diverticula and sigmoid diverticulosis but no evidence of acute diverticulitis. Dictated by: Dictated on workstation # [id number]
== END 2022-09-22 00:40 | disposition home or self-care (01) ==
LOC: EDUNIT# 22:25 → ER FS 22:26
DX: K59.00 Constipation, unspecified (principal); E11.65 Type 2 diabetes mellitus with hyperglycemia; Z28.310 Unvaccinated for COVID-19
CPT/HCPCS: 36415; 74176; 80053; 81000; 82947; 83605; 83690; 83735; 85025

== ENCOUNTER → 2022-10-27 | Outpatient (CLI) | payer MEDICAID ==
[~2022-10-27] MED LIST changes: +ZOLP10TA PO
[2022-10-27 19:32] LABS: BILIRUBIN,URINE NEGATIVE (NEGATIVE); CLARITY,URINE CLEAR; COLOR,URINE YELLOW; GLUCOSE, URINE (UA) NEGATIVE (NEGATIVE); KETONES,URINE NEGATIVE (NEGATIVE); LEUKOCYTE ESTERASE ,URINE NEGATIVE (NEGATIVE); NITRITE,URINE NEGATIVE (NEGATIVE); PROTEIN,URINE NEGATIVE (NEGATIVE)
[2022-10-27 19:52] LABS: BACTERIA,URINE NEGATIVE /HPF; SQUAMOUS EPITHELIAL CELL,UR RARE /HPF; WBC,URINE 0-2 /HPF
== END ==
LOC: LAB FS 18:13
PROVIDERS: ATTEND Family Medicine
DX: D72.829 Elevated white blood cell count, unspecified (principal)
CPT/HCPCS: 81000

== ENCOUNTER → 2022-11-24 | Outpatient (CLI) | payer MEDICAID, OTHER ==
[2022-11-24 14:13] LABS: ABSOLUTE RETIC # 123 10e9/uL (24-90); RETICULOCYTE % 2.56 % (0.50-2.40)
[2022-11-24 14:21] LABS: BAND NEUTROPHILS 4 %; EOSINOPHILS % (MANUAL) 2 %; LYMPHOCYTES % (MANUAL) 33 %; MONOCYTES % (MANUAL) 5 %; NEUTROPHILS % (MANUAL) 53 %
[2022-11-24 14:22] LABS: REACTIVE LYMPHOCYTES 3 %
== END ==
LOC: LABNPT 13:34
PROVIDERS: ATTEND Registered Nurse Emergency
DX: D72.829 Elevated white blood cell count, unspecified (principal)
CPT/HCPCS: 85007; 85027; 85045; 85055

== ENCOUNTER → 2022-11-25 | Outpatient (CLI) | payer MEDICAID ==
--- NOTE | 2022-11-25 13:04 | Diagnostic Imaging Report ---
INDICATION: ELEVATED WBC COMPARISON: None FINDINGS: Frontal and lateral views of the chest demonstrate normal heart size and pulmonary vascularity. The lungs are clear. There are no signs of infiltrate, pleural effusions or pneumothoraces. The visualized osseous structures show no acute abnormalities. IMPRESSION: 1. No acute process. No signs of infiltrates, effusions or pneumothoraces. Dictated by: Dictated on workstation # [id number]
== END ==
LOC: RAD FS 11:29
PROVIDERS: ATTEND Registered Nurse Emergency
DX: D72.829 Elevated white blood cell count, unspecified (principal)
CPT/HCPCS: 71046